=== PATIENT | female | born 1950 | race Caucasian/White ===

== ENCOUNTER 2017-07-11 13:30 | Emergency (ER) | payer OTHER, BC ==
[~2017-07-11] VITALS: Ht 149.9 cm; Wt 73.6 kg
[~2017-07-11 13:30] MED LIST: ADVAIR 250/501 DISK IH; AVELOX400 MG PO; DEXILANT60 MG PO; HYDROCODON-ACE1 EAC7 PO; KAPIDEX60 MG PO; LEXAPRO20 MG PO; LIPITOR10 MG PO; NEXIUM40 MG PO; OXYGEN; RISPERDAL0.25 MG PO; VENTOLIN HFA18 GM IH; WELCHOL625 MG PO
[2017-07-11 14:23] LABS: HEMATOCRIT 41.8 % (36.0-46.0); MCH 27.9 PG (29.0-34.0); MCHC 31.8 G/DL (30.0-36.0); MCV 87.8 FL (83-99); MEAN PLAT.VOLUME 10.1 uM^3 (9.5-12.4); PLATELET COUNT 357 K/uL (156-360); RBC DIS.WIDTH-CV 15.3 % (11.8-14.6); RBC DIS.WIDTH-SD 49.2 % (39-53); RED BLOOD COUNT 4.76 M/uL (3.80-5.20); WHITE BLOOD COUNT 8.4 K/uL (4.1-10.2)
[2017-07-11 14:37] LABS: CHLORIDE 103 mEq/L (99-109); POTASSIUM 4.2 mEq/L (3.7-5.4); SODIUM 141 mEq/L (136-147)
[2017-07-11 14:39] LABS: GLUCOSE 103 mg/dL (70-99)
[2017-07-11 14:40] LABS: ANION GAP 11 MEQ/L (2-14)
[2017-07-11 14:41] LABS: TOTAL BILIRUBIN 0.6 mg/dL (0.0-1.0)
[2017-07-11 14:43] LABS: ALKALINE PHOSPHATASE 111 IU/L (3-129); GFR ESTIMATE (CALCULATED) > 59 mL/min/
[2017-07-11 14:44] LABS: UREA NITROGEN (BUN) 11 mg/dL (9-23)
[2017-07-11 14:51] LABS: ADD MIUA? YES; BILIRUBIN NEGATIVE; BLOOD NEGATIVE; COLOR YELLOW ((YELLOW)); GLUCOSE (STRIP) NEGATIVE; KETONES NEGATIVE; LEUKOCYTES NEGATIVE; NITRITE NEGATIVE; PROTEIN (STRIP) NEGATIVE; SPECIFIC GRAVITY 1.024 (1.000-1.030)
[2017-07-11 15:01] LABS: BACTERIA RARE /HPF; CALCIUM OXALATE CRYSTALS 4+ /HPF; EPITHELIAL CELLS 2+ /HPF; MUCUS 2+ /LPF; UCUL ADDED? NO; WHITE BLOOD CELLS 0-5 /HPF (0-5)
[2017-07-11 15:38] LABS: LIPASE 18 U/L (1.0-51.0)
[2017-07-11] MEDS ORDERED: CIPRO500 MG PO (17:10)
[2017-07-11] MEDS ORDERED: FLAGYL500 MG PO (17:10)
[2017-07-11] MEDS ORDERED: ZOFRAN ODT4 MG PO (17:10)
[2017-07-11] MEDS ORDERED: PERCOCET 5/31 TABLET PO (17:10)
[2017-07-11 17:32] VITALS: BP 139/67
== END 2017-07-11 17:33 | disposition home or self-care (01) ==
LOC: EME 13:30
DX: K57.32 Diverticulitis of large intestine without perforation or abscess without bleeding (principal); J45.909 Unspecified asthma, uncomplicated; F32.9 Major depressive disorder, single episode, unspecified; K21.9 Gastro-esophageal reflux disease without esophagitis; F41.9 Anxiety disorder, unspecified
CPT/HCPCS: 74177; 80053; 81003; 83690; 85027; 99281; 99285; J7030

== ENCOUNTER 2017-08-16 10:56 | Inpatient (IN) | payer OTHER, BC ==
[~2017-08-16] VITALS: Ht 152.4 cm; Wt 73.8 kg
[~2017-08-16 10:56] MED LIST changes: +CIPRO500 MG PO; +FLAGYL500 MG PO; +PERCOCET 5/31 TABLET PO; +ZOFRAN ODT4 MG PO
[2017-08-16 11:20] LABS: HEMATOCRIT 41.8 % (36.0-46.0); MCH 27.6 PG (29.0-34.0); MCHC 32.1 G/DL (30.0-36.0); MCV 86.2 FL (83-99); MEAN PLAT.VOLUME 10.2 uM^3 (9.5-12.4); PLATELET COUNT 355 K/uL (156-360); RBC DIS.WIDTH-CV 15.8 % (11.8-14.6); RBC DIS.WIDTH-SD 49.3 % (39-53); RED BLOOD COUNT 4.85 M/uL (3.80-5.20); WHITE BLOOD COUNT 7.4 K/uL (4.1-10.2)
[2017-08-16 11:43] LABS: ANION GAP 9 MEQ/L (2-14); CHLORIDE 101 MEQ/L (99-109); POTASSIUM 4.5 MEQ/L (3.7-5.4); SAMPLE HEMOLYSIS CHECK 0; SAMPLE ICTERIC CHECK 0; SAMPLE LIPEMIA CHECK 0; SODIUM 137 MEQ/L (136-147); TOTAL BILIRUBIN 0.6 MG/DL (0.0-1.0)
[2017-08-16 11:49] LABS: ALKALINE PHOSPHATASE 174 IU/L (3-129); GFR ESTIMATE (CALCULATED) > 59 mL/min/; GLUCOSE 105 mg/dL (70-99); UREA NITROGEN (BUN) 9 mg/dL (9-23)
[2017-08-16 13:47] LABS: ADD MIUA? NO; BILIRUBIN NEGATIVE; BLOOD NEGATIVE; COLOR YELLOW ((YELLOW)); GLUCOSE (STRIP) NEGATIVE; KETONES 5; LEUKOCYTES NEGATIVE; NITRITE NEGATIVE; PROTEIN (STRIP) NEGATIVE; UCUL ADDED? NO
[2017-08-16 14:13] LABS: SPECIFIC GRAVITY 1.092 (1.000-1.030)
[2017-08-16] MEDS ORDERED: CENTRUM ADULTS1 EACH PO (15:56)
[2017-08-16 17:45] VITALS: BP 140/65
[2017-08-17 07:49] VITALS: BP 97/55
[2017-08-17 08:21] LABS: HEMATOCRIT 38.6 % (36.0-46.0); MCH 27.2 PG (29.0-34.0); MCHC 30.8 G/DL (30.0-36.0); MCV 88.3 FL (83-99); PLATELET COUNT 322 K/uL (156-360); RBC DIS.WIDTH-CV 15.7 % (11.8-14.6); RBC DIS.WIDTH-SD 50.6 % (39-53); RED BLOOD COUNT 4.37 M/uL (3.80-5.20); WHITE BLOOD COUNT 7.6 K/uL (4.1-10.2)
[2017-08-17 08:47] LABS: ALKALINE PHOSPHATASE 143 IU/L (3-129); ANION GAP 7 MEQ/L (2-14); CHLORIDE 105 MEQ/L (99-109); GFR ESTIMATE (CALCULATED) > 59 mL/min/; GLUCOSE 94 mg/dL (70-99); HDL CHOLESTEROL 47 MG/DL (Desirable>=50); LDL CHOLESTEROL 75 mg/dL (Desirable<100); NON-HDL CHOLESTEROL 87 mg/dL (Desirable<160); SAMPLE HEMOLYSIS CHECK 0; SAMPLE ICTERIC CHECK 0; SAMPLE LIPEMIA CHECK 0; SODIUM 143 MEQ/L (136-147); TOTAL BILIRUBIN 0.5 MG/DL (0.0-1.0); TOTAL CHOLESTEROL 134 mg/dL (Desirable<200); TRIGLYCERIDES 62 MG/DL (Normal: <150); UREA NITROGEN (BUN) 7 mg/dL (9-23)
[2017-08-17 10:53] LABS: Estimated Average Glucose 140 mg/dL (70-123); HEMOGLOBIN A1c (GLYCOHEMOGLOB) 6.5 % HGB (Below 5.7)
[2017-08-17 15:15] VITALS: BP 154/65
[2017-08-17 23:29] VITALS: BP 102/55
[2017-08-18 07:07] LABS: ANION GAP 16 MEQ/L (2-14); CHLORIDE 103 MEQ/L (99-109); GFR ESTIMATE (CALCULATED) > 59 mL/min/; GLUCOSE 66 mg/dL (70-99); POTASSIUM 4.5 MEQ/L (3.7-5.4); SAMPLE HEMOLYSIS CHECK 0; SAMPLE ICTERIC CHECK 0; SAMPLE LIPEMIA CHECK 0; SODIUM 141 MEQ/L (136-147); UREA NITROGEN (BUN) 10 mg/dL (9-23)
[2017-08-18 07:32] VITALS: BP 118/56
[2017-08-18 16:13] VITALS: BP 124/61
[2017-08-19 00:34] VITALS: BP 103/54
[2017-08-19 07:34] LABS: POINT-OF-CARE METER ID UU13113774
[2017-08-19 07:40] VITALS: BP 143/64
[2017-08-19 16:35] VITALS: BP 171/74
[2017-08-19] MEDS ORDERED: REGLAN10 MG PO (17:14)
[2017-08-19] MEDS ORDERED: FLAGYL500 MG PO ×2 (17:14→18:01)
[2017-08-19] MEDS ORDERED: CIPRO500 MG PO (17:14)
[2017-08-19 17:39] LABS: POINT-OF-CARE METER ID UU13113725
== END 2017-08-19 18:01 | disposition home or self-care (01) | DRG 392 ==
LOC: EME 10:56 → 5EAST 16:00 → EDOF 16:00 → ENRESERV 16:26 → 5EAST 17:46
PROVIDERS: Family Medicine
DX: K57.32 Diverticulitis of large intestine without perforation or abscess without bleeding (principal); E11.9 Type 2 diabetes mellitus without complications; E78.5 Hyperlipidemia, unspecified; J45.909 Unspecified asthma, uncomplicated; G47.30 Sleep apnea, unspecified; F32.9 Major depressive disorder, single episode, unspecified; K21.9 Gastro-esophageal reflux disease without esophagitis; E66.9 Obesity, unspecified; F41.9 Anxiety disorder, unspecified; K43.9 Ventral hernia without obstruction or gangrene; G43.909 Migraine, unspecified, not intractable, without status migrainosus; Z68.31 Body mass index [BMI] 31.0-31.9, adult; Z88.5 Allergy status to narcotic agent
CPT/HCPCS: 36415; 74176; 80048; 80053; 80061; 81003; 82565; 82948; 83036; 84520; 85027; 99281; 99284; J0744; J2405; J2765; J3010; S0030

== ENCOUNTER 2017-11-11 15:59 | Inpatient (IN) | payer OTHER, BC ==
[~2017-11-11] VITALS: Ht 149.9 cm; Wt 55.6 kg
[~2017-11-11 15:59] MED LIST changes: +CENTRUM ADULTS1 EACH PO; +REGLAN10 MG PO
[2017-11-11 17:08] LABS: HEMATOCRIT 38.9 % (36.0-46.0); HEMOGLOBIN 12.7 G/DL (11.9-15.5); MCH 27.6 PG (29.0-34.0); MCHC 32.6 G/DL (30.0-36.0); MCV 84.6 FL (83-99); PLATELET COUNT 358 K/uL (156-360); RBC DIS.WIDTH-CV 15.7 % (11.8-14.6); RBC DIS.WIDTH-SD 48.1 % (39-53); WHITE BLOOD COUNT 11.6 K/uL (4.1-10.2)
[2017-11-11 17:11] LABS: ALBUMIN 3.9 g/dL (3.2-4.8); CHLORIDE 105 mEq/L (99-109); POTASSIUM 3.8 mEq/L (3.7-5.4); SODIUM 142 mEq/L (136-147)
[2017-11-11 17:13] LABS: GLUCOSE 87 mg/dL (70-99); TOTAL PROTEIN 7.3 g/dL (6.4-8.3)
[2017-11-11 17:15] LABS: TOTAL BILIRUBIN 0.5 mg/dL (0.0-1.0)
[2017-11-11 17:17] LABS: ALKALINE PHOSPHATASE 103 IU/L (3-129); CREATININE 0.8 mg/dL (0.6-1.3); GFR ESTIMATE (CALCULATED) > 59 mL/min/
[2017-11-11 17:18] LABS: UREA NITROGEN (BUN) 11 mg/dL (9-23)
[2017-11-11 17:19] LABS: AST (GOT) 19 IU/L (2-34)
[2017-11-11 17:20] LABS: ALT (GPT) 13 IU/L (3-49)
[2017-11-11] MEDS ORDERED: LEVOFLOXACIN500 MG PO (19:38)
[2017-11-11] MEDS ORDERED: WOMEN'S DAILY1 EAC4 PO (19:43)
[2017-11-11 22:39] VITALS: BP 139/65
[2017-11-11 23:57] VITALS: BP 134/64
[2017-11-12] VITALS (7 sets, daily range): BP systolic 106–147; BP diastolic 52–101
[2017-11-12 05:48] LABS: HEMATOCRIT 35.6 % (36.0-46.0); HEMOGLOBIN 11.2 G/DL (11.9-15.5); MCH 27.1 PG (29.0-34.0); MCHC 31.5 G/DL (30.0-36.0); PLATELET COUNT 319 K/uL (156-360); RBC DIS.WIDTH-CV 15.8 % (11.8-14.6); RED BLOOD COUNT 4.14 M/uL (3.80-5.20)
[2017-11-12 06:11] LABS: CHLORIDE 108 MEQ/L (99-109); CREATININE 0.8 MG/DL (0.6-1.3); GFR ESTIMATE (CALCULATED) > 59 mL/min/; GLUCOSE 122 mg/dL (70-99); POTASSIUM 3.5 MEQ/L (3.7-5.4); SODIUM 143 MEQ/L (136-147); UREA NITROGEN (BUN) 7 mg/dL (9-23)
[2017-11-13 05:30] LABS: CHLORIDE 109 MEQ/L (99-109); CREATININE 0.8 MG/DL (0.6-1.3); GFR ESTIMATE (CALCULATED) > 59 mL/min/; GLUCOSE 126 mg/dL (70-99); POTASSIUM 3.7 MEQ/L (3.7-5.4); SODIUM 143 MEQ/L (136-147); UREA NITROGEN (BUN) 5 mg/dL (9-23)
[2017-11-13 08:57] VITALS: BP 140/64
[2017-11-13 16:00] VITALS: BP 151/80
[2017-11-13 23:41] VITALS: BP 148/65
[2017-11-14 08:46] VITALS: BP 133/62
[2017-11-14 16:25] VITALS: BP 134/82
[2017-11-14 23:37] VITALS: BP 140/65
[2017-11-15 05:00] LABS: BASOPHIL (%) 1.1 % (0-1); BASOPHIL COUNT 0.1 K/uL (0-0.1); EOSINOPHIL (%) 4.7 % (0-5); EOSINOPHIL COUNT 0.4 K/uL (0-0.3); HEMATOCRIT 34.9 % (36.0-46.0); IMMATURE GRANULOCYTE (%) 0.5 % (0.0-0.7); LYMPHOCYTE (%) 34.8 % (15-42); LYMPHOCYTE COUNT 2.6 K/uL (1.0-2.8); MCHC 31.5 G/DL (30.0-36.0); MCV 85.7 FL (83-99); MONOCYTE (%) 10.1 % (3-12); MONOCYTE COUNT 0.8 K/uL (0-0.8); NEUTROPHIL (%) 48.8 % (45-76); NEUTROPHIL COUNT 3.6 K/uL (1.8-6.4); PLATELET COUNT 298 K/uL (156-360); RBC DIS.WIDTH-CV 15.7 % (11.8-14.6); RBC DIS.WIDTH-SD 49.2 % (39-53); RED BLOOD COUNT 4.07 M/uL (3.80-5.20); WHITE BLOOD COUNT 7.4 K/uL (4.1-10.2)
[2017-11-15 05:26] LABS: CHLORIDE 110 MEQ/L (99-109); CREATININE 0.7 MG/DL (0.6-1.3); GFR ESTIMATE (CALCULATED) > 59 mL/min/; GLUCOSE 119 mg/dL (70-99); POTASSIUM 3.7 MEQ/L (3.7-5.4); SODIUM 142 MEQ/L (136-147); UREA NITROGEN (BUN) 4 mg/dL (9-23)
[2017-11-15 08:22] VITALS: BP 122/70
[2017-11-15 15:53] VITALS: BP 149/67
[2017-11-15 23:10] VITALS: BP 145/64
[2017-11-16 08:00] VITALS: BP 128/60
[2017-11-16] MEDS ORDERED: CIPRO500 MG PO (11:05)
[2017-11-16] MEDS ORDERED: FLAGYL500 MG PO (11:06)
[2017-11-16] MEDS ORDERED: HYDROCODON-ACE1 EAC7 PO (11:07)
== END 2017-11-16 16:05 | disposition home or self-care (01) | DRG 392 ==
LOC: EME 15:59 → EDOF 20:31 → 3EAST 20:31 → ENRESERV 20:32 → 3EAST 21:30
PROVIDERS: Family Medicine; Nurse Practitioner Family
DX: K57.20 Diverticulitis of large intestine with perforation and abscess without bleeding (principal); K57.32 Diverticulitis of large intestine without perforation or abscess without bleeding; E11.9 Type 2 diabetes mellitus without complications; K21.9 Gastro-esophageal reflux disease without esophagitis; F32.9 Major depressive disorder, single episode, unspecified; G47.30 Sleep apnea, unspecified; E11.65 Type 2 diabetes mellitus with hyperglycemia; E78.5 Hyperlipidemia, unspecified; E66.9 Obesity, unspecified; E87.6 Hypokalemia; K62.89 Other specified diseases of anus and rectum; K43.9 Ventral hernia without obstruction or gangrene; D72.829 Elevated white blood cell count, unspecified; J45.909 Unspecified asthma, uncomplicated; Z90.49 Acquired absence of other specified parts of digestive tract; Z88.6 Allergy status to analgesic agent; Z88.8 Allergy status to other drugs, medicaments and biological substances; Z90.710 Acquired absence of both cervix and uterus; Z79.4 Long term (current) use of insulin
CPT/HCPCS: 74176; 74177; 80048; 80053; 83605; 85025; 85027; 87040; 99281; 99285; J0744; J2405; J3010; J7030; J7042; S0030